=== PATIENT | male | born 1995 | race Two or more races ===

== ENCOUNTER 2025-03-15 11:57 | Emergency (ER) | payer OTHER ==
[~2025-03-15] VITALS: Ht 167.6 cm; Wt 74.0 kg
[2025-03-15 12:04] VITALS: BP 127/71; PULSE 90; RESP 16; TEMP 98.3; O2SAT 99
[2025-03-15] MEDS: ACETAMINOPHEN 325 MG TABLET PO ONE (14:20)
[2025-03-15] MEDS: IBUPROFEN 600 MG TABLET PO ONE (14:20)
== END 2025-03-15 16:06 ==
LOC: EMS 11:57
DX: S93.402A Sprain of unspecified ligament of left ankle, initial encounter (principal); W13.8XXA Fall from, out of or through other building or structure, initial encounter; Y93.89 Activity, other specified; Y92.89 Other specified places as the place of occurrence of the external cause; Y99.8 Other external cause status
CPT/HCPCS: 99284